=== PATIENT | male | born 1970 | race Caucasian/White ===

== ENCOUNTER 2021-05-20 14:11 | Emergency (ER) | payer BC ==
[~2021-05-20] VITALS: Ht 180.3 cm; Wt 127.0 kg
[2021-05-20 14:18] VITALS: BP 223/141
[2021-05-20] MEDS ORDERED: LIDOcaine 1% W/epiNEPHrine 1:200,000 10ml vial IJ ONE (14:45)
[2021-05-20] MEDS ORDERED: TETanus/Pertussis (Acell)/Diphther VAC/PF (Tdap-Adult) 0.5ml syringe IMVAC ONE (14:45)
--- NOTE | 2021-05-20 15:39 | NUR ---
DR DAVIS AT BEDSIDE SUTURING RFA LAC. IS AWARE OF BP, SPEAKING WITH PT ABOUT HIS BP AND MANAGEMENT OF SUCH, HE WILL F/U WITH HIS PCP
== END 2021-05-20 16:09 | disposition home or self-care (01) ==
LOC: ER 14:12
DX: S61.511A Laceration without foreign body of right wrist, initial encounter (principal); R51.9 Headache, unspecified; W25.XXXA Contact with sharp glass, initial encounter; Y93.89 Activity, other specified; Y92.89 Other specified places as the place of occurrence of the external cause; Y99.8 Other external cause status
CPT/HCPCS: 12002; 73100; 90471; 90715; 99283